=== PATIENT | male | born 1990 | race American Indian/Alaskan Native ===

== ENCOUNTER 2019-09-23 12:36 | Emergency (ER) | payer SELFPAY ==
--- NOTE | 2019-09-23 12:51 | Emergency Department Report ---
Stated Complaint: DISHCHARGE - HPI History of Present Illness: penile discharge dysuria referred to clinic MSE screening note: Focused history and physical exam performed. Due to findings the following was ordered: ED Disposition for MSE Clinical Impression: Encounter for medical screening examination Disposition: MED SCREENING EXAM-LEFT Is pt being admited?: No Does the pt Need Aspirin: No Condition: Stable Referrals: TERESO POTTER MD [Staff Physician] - 3-5 Days
[2019-09-23 12:52] VITALS: BP 125/72
== END 2019-09-23 13:26 | disposition left against medical advice (07) ==
LOC: ED 12:36
DX: R10.2 Pelvic and perineal pain (principal); R30.0 Dysuria; Z53.21 Procedure and treatment not carried out due to patient leaving prior to being seen by health care provider